=== PATIENT | female | born 1985 | race Caucasian/White ===

== ENCOUNTER 2021-11-30 16:10 | Emergency (ER) | payer SELFPAY ==
[2021-11-30] MEDS ORDERED: Doxycycline 100 MG Cap ONE (17:45)
== END 2021-11-30 17:55 | disposition home or self-care (01) ==
LOC: LB.ED 16:10
DX: J32.0 Chronic maxillary sinusitis (principal); H66.001 Acute suppurative otitis media without spontaneous rupture of ear drum, right ear; I10 Essential (primary) hypertension; Z88.5 Allergy status to narcotic agent; Z88.8 Allergy status to other drugs, medicaments and biological substances; Z20.822 Contact with and (suspected) exposure to COVID-19
CPT/HCPCS: 87081; 87430; 87635; 87804; 99283; A9270; U0002